=== PATIENT | female | born 1965 | race Caucasian/White ===

== ENCOUNTER → 2023-09-17 | Outpatient (CLI) | payer BC, MEDICARE ==
[2023-09-17 10:26] VITALS: BP 134/84; PULSE 55; RESP 16; TEMP 98.4
--- NOTE | 2023-09-17 11:00 | P.HPOB ---
History of Present Illness H&P Date: 09/17/23 Chief Complaint: The patient is here for her routine gynecologic exam and ma mmogram. This is a 58-year-old G4, P4 with an LMP of 2012. The patient is here to establish with this office. It has been about 4 years since her last pelvic exam. She is without gynecologic complaints and denies any postmenopausal bleeding. Review of Systems The patient's weight has been stable over the last year. She denies respiratory, cardiac, or G.I. problems. 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 PAST TIME CLERK HISTORY: She has no history of STDs. Periods ended after chemotherapy in 2012. History of Any Multi-Drug Resistant Organisms: None Reported Past Surgical History: Adenoidectomy, Appendectomy, Cholecystectomy, Ear Surgery, Tonsillectomy Additional Past Surgical History / Comment(s): Cholesteatoma removed. Cataract surgery. Past Anesthesia/Blood Transfusion Reactions: No Reported Reaction Past Psychological History: No Psychological Hx Reported Smoking Status: Former smoker Past Alcohol Use History: Occasional (4-5 drinks per month.) Additional Past Alcohol Use History / Comment(s): Quit smoking in 2007. Past Drug Use History: None Reported Additional History: She has been since 1984 and is retired. - Past Family History Mother Additional Family Medical History / Comment(s): Osteoporosis and lupus. Father Family Medical History: Dementia Medications and Allergies Home Medications Medication Instructions Recorded Confirmed Type Atorvastatin [Lipitor] 40 mg PO DAILY 09/17/23 09/17/23 History Allergies Allergy/AdvReac Type Severity Reaction Status Date / Time Penicillins Allergy Unknown Unverified 09/17/23 10:18 Childhood Exam Vital Signs Temp Pulse Resp BP Pulse Ox 09/17/23 10:19 98.4 F 55 L 16 134/84 97 Intake and Output 09/16/23 09/17/23 09/17/23 22:59 06:59 14:59 Other: Weight 133.356 kg Height 5 feet 7 inches, weight 294 pounds, BMI 46.0. This is a well-developed well-nourished heavyset white female who is alert and oriented times 3 in no acute distress. HEENT: Within normal limits. NECK: Supple without mass or thyromegaly. CHEST AND LUNGS: Clear to auscultation. HEART: Regular rate and rhythm. BREASTS: Are without mass or discharge. AXILLARY EXAM: Negative for adenopathy. BACK: Negative for CVA tenderness. ABDOMEN: Soft, nontender, without palpable masses. PELVIC EXAM: Normal external genitalia with mild atrophy. Cervix and vagina appear normal with mild atrophy. There is no unusual discharge. There is no evidence of prolapse. The uterus is midposition, nongravid size and nontender. There are no palpable adnexal masses or tenderness. Bimanual examination is somewhat limited secondary to her size. RECTAL EXAM: Rectovaginal exam is negative for mass or tenderness and is negative for occult blood. EXTREMITIES: Nontender. IMPRESSION: 1. 58-year-old menopausal female with normal gynecologic exam. 2. History of HLH and is status post chemotherapy. She has been menopausal since her chemotherapy. PLAN: 1. Pap smear cotest was performed. 2. Self breast awareness was discussed with the patient. We have also discussed symptoms associated with inflammatory breast cancer. 3. Screening mammogram will be done today. 4. Osteoporosis prevention was discussed. I have stressed the importance of adequate calcium, vitamin D and regular exercise. Recommended amounts of calcium and vitamin D were also discussed. Baseline bone density testing will be done today. She does have a family history of osteoporosis in her mother. 5. She has had Cologuard testing. She is planning to get a colonoscopy in the near future. She will arrange this through her PCP. 6. She was advised to return in one year for her annual well woman exam.
== END ==
LOC: WWCWWP 09:43
PROVIDERS: ATTEND Obstetrics & Gynecology
DX: Z12.31 Encounter for screening mammogram for malignant neoplasm of breast (principal); Z78.0 Asymptomatic menopausal state; Z92.21 Personal history of antineoplastic chemotherapy; Z87.891 Personal history of nicotine dependence; Z88.0 Allergy status to penicillin; Z86.2 Personal history of diseases of the blood and blood-forming organs and certain disorders involving the immune mechanism
CPT/HCPCS: 77063; 77067; 77080

== ENCOUNTER → 2023-09-30 | Outpatient (CLI) | payer MEDICARE ==
--- NOTE | 2023-09-30 10:43 | MM ---
Reason for Exam: Additional evaluation requested from abnormal screening. Last screening mammogram was performed less than 1 month ago. Patient History: Menarche at age 12. First Full-Term at age 19. Postmenopausal. Risk Values: Nina 5 year model risk: 1.0%. NCI Lifetime model risk: 5.6%. Prior Study Comparison: 01/16/2019 Bilateral Screening Mammogram, [facility]. 09/17/2023 Bilateral MG 3D screening mammo w/cad, [facility]. Tissue Density: Right: The breasts are heterogeneously dense, which may obscure small masses. Findings: Analyzed By CAD. At the 9 to 10:00 position right breast there is a 1.2 cm nodule seen 7.6 cm from the nipple. Ultrasound is advised. Overall Assessment: Incomplete: need additional imaging evaluation, BI-RAD 0 Management: Diagnostic Breast Ultrasound of the right breast. . Results were given to the patient verbally at the time of exam. Patient should continue monthly self-breast exams. A clinical breast exam by your physician is recommended on an annual basis. This exam should not preclude additional follow-up of suspicious palpable abnormalities. Note on Nina scores and lifetime risk: 1. A Nina score greater than 3% is considered moderate risk. If this is the case, consider specialist referral to assess eligibility for a risk reducing agent. 2. If overall lifetime risk for the development of breast cancer is 20% or higher, the patient may qualify for future screening with alternating mammogram and breast MRI. Electronically signed and approved by: Bud Morton M.D. Radiologis
--- NOTE | 2023-09-30 11:15 | USB ---
Reason for Exam: Additional evaluation requested from abnormal screening. Patient History: Menarche at age 12. First Full-Term at age 19. Postmenopausal. Risk Values: Nina 5 year model risk: 1.0%. NCI Lifetime model risk: 5.6%. Technique: Method: Targeted. Prior Study Comparison: 01/16/2019 Bilateral Screening Mammogram, [facility]. 09/17/2023 Bilateral MG 3D screening mammo w/cad, [facility]. Findings: Simple appearing cyst at the mammographic site of concern right 9:00 position 7 cm from the nipple measuring up 0.9 x 0.7 cm. No solid masses are seen.. Overall Assessment: Benign, BI-RAD 2 Management: Screening Mammogram of both breasts in 1 year. A clinical breast exam by your physician is recommended on an annual basis and results should be correlated with mammographic findings. This exam should not preclude additional follow-up of suspicious palpable abnormalities. Results were given to the patient verbally at the time of exam. Electronically signed and approved by: Bud Morton M.D. Radiologis
== END | disposition home or self-care (01) ==
LOC: RADMAMWWP 10:11
PROVIDERS: ATTEND Obstetrics & Gynecology
DX: R92.331 Mammographic heterogeneous density, right breast (principal); R92.8 Other abnormal and inconclusive findings on diagnostic imaging of breast; Z78.0 Asymptomatic menopausal state
CPT/HCPCS: 77065; 76642; G0279; 77061